=== PATIENT | female | born 1995 | race Two or more races ===

== ENCOUNTER 2017-10-22 15:11 | Emergency (ER) | payer MEDICAID ==
[~2017-10-22] VITALS: Ht 144.8 cm; Wt 47.6 kg
[2017-10-22 15:30] VITALS: BP 118/87
== END 2017-10-22 20:45 | disposition home or self-care (01) ==
LOC: ER 15:14
DX: S16.1XXA Strain of muscle, fascia and tendon at neck level, initial encounter (principal); S09.90XA Unspecified injury of head, initial encounter; V43.52XA Car driver injured in collision with other type car in traffic accident, initial encounter; Y93.89 Activity, other specified; Y99.8 Other external cause status; Y92.410 Unspecified street and highway as the place of occurrence of the external cause
CPT/HCPCS: 70450; 72040